=== PATIENT | female | born 1940 | race Caucasian/White ===

== ENCOUNTER 2017-01-18 13:07 | Outpatient (CLI) | payer MEDICARE ==
--- NOTE | 2017-01-18 15:24 | MMO ---
BILATERAL DIGITAL SCREENING MAMMOGRAMS: Date: 01/18/17 This patient's mammogram was interpreted with the assistance of computer-aided detection. HISTORY: Left-sided breast cancer in 2002. Status post lumpectomy and radiation. FINDINGS: Comparison made with exams of 12/28/15, 12/24/14, and 11/19/13. There are scattered fibroglandular densities with benign calcifications. Postop changes are again se en in the left breast. No suspicious masses or calcifications are identified. IMPRESSION: BIRADS 2: Benign Finding(s) Annual mammographic screening mammography is recommended. POS: [facility]
== END 2017-01-18 13:08 | disposition home or self-care (01) ==
LOC: MAMMO 13:07
PROVIDERS: ATTEND Internal Medicine
DX: Z12.31 Encounter for screening mammogram for malignant neoplasm of breast (principal)
CPT/HCPCS: 77067; G0202

== ENCOUNTER 2017-12-04 11:38 | Outpatient (CLI) | payer MEDICARE | END 2017-12-04 11:39 | disposition home or self-care (01) | LOC: BICRAD 11:38 | PROVIDERS: ATTEND Internal Medicine Rheumatology | DX: M47.22 Other spondylosis with radiculopathy, cervical region (principal) | CPT/HCPCS: 72050 ==

== ENCOUNTER 2017-12-18 14:42 | Outpatient (CLI) | payer MEDICARE ==
--- NOTE | 2017-12-18 16:52 | MRI ---
MRI CERVICAL SPINE WITHOUT CONTRAST: 12/18/17 HISTORY: Spondylosis with radiculopathy. Left shoulder and arm pain x2 to 3 months. COMPARISON: None. TECHNIQUE: Cervical spine MRI is performed without intravenous gadolinium administration. Multisequential, mult iplanar imaging is performed. FINDINGS: Appropriate T1 narrow signal intensity of the cervical vertebrae. Cervical spine vertebral body heigh t is maintained. There is no fracture. No significant STIR hyperintensity to suggest vertebral body e libia or ligamentous injury. The visualized brain parenchyma, cervicomedullary junction, cervical cord, and the upper thoracic cor d have a normal size and signal intensity. C2-C3: No significant disc osteophyte complex. No significant central canal stenosis. Neural foramina l are patent. C3-C4: No significant disc osteophyte complex. No significant central canal stenosis. Degenerative ch anges in the right uncovertebral joint results in moderate right foramina narrowing. Mild left forami nal narrowing due to degenerative changes of the uncovertebral joint. C4-C5: Broad based disc osteophyte complex abuts the thecal sac. There is a central component that d eforms the ventral thecal sac and ventral cord. No T2 hyperintensity in the cord. Mild central canal stenosis. Degenerative changes in the left and right uncovertebral joint resulting in mild right and mild to moderate left neural foraminal narrowing. C5-C6: Broad based disc osteophyte complex abuts the thecal sac. Ventral subarachnoid space is still maintained. Mild central canal stenosis. Degenerative changes in the bilateral uncovertebral joints r esulting in moderate right and left foraminal narrowing. C6-C7: Broad based disc osteophyte complex abuts the thecal sac. Ventral subarachnoid space is mainta ined. Mild central canal stenosis. Moderate bilateral neural foraminal narrowing. C7-T1: No significant disc osteophyte complex. No significant central canal stenosis. Neural foramina are patent. IMPRESSION: Degenerative changes of the cervical spine as above. POS: [facility]
== END 2017-12-18 14:43 | disposition home or self-care (01) ==
LOC: BICMRI 14:42
PROVIDERS: ATTEND Internal Medicine Rheumatology
DX: M47.22 Other spondylosis with radiculopathy, cervical region (principal)
CPT/HCPCS: 72141

== ENCOUNTER 2018-01-30 09:22 | Outpatient (CLI) | payer MEDICARE | END 2018-01-30 09:23 | disposition home or self-care (01) | LOC: BICMAMMO 09:22 | PROVIDERS: ATTEND Internal Medicine | DX: Z12.31 Encounter for screening mammogram for malignant neoplasm of breast (principal); Z85.3 Personal history of malignant neoplasm of breast; Z80.3 Family history of malignant neoplasm of breast; Z98.890 Other specified postprocedural states | CPT/HCPCS: 77063; 77067 ==

== ENCOUNTER 2018-05-22 13:22 | Outpatient (CLI) | payer MEDICARE ==
--- NOTE | 2018-05-22 14:34 | RAD ---
RIGHT FOOT 3 VIEWS: HISTORY: Intermittent burning plantar mid foot pain. COMPARISON: None. FINDINGS: Mild hypertrophy of the contents of the plantar aponeurosis insertion site. Joint spaces appear to b e preserved. Lisfranc alignment is maintained. No fracture. IMPRESSION: 1. No fracture. 2. Mild hypertrophy at the calcaneus at the plantar aponeurosis insertion site. Correlate for plant ar fasciitis. POS: [facility]
== END 2018-05-22 13:23 | disposition home or self-care (01) ==
LOC: BICRAD 13:22
PROVIDERS: ATTEND Podiatrist
DX: R20.8 Other disturbances of skin sensation (principal); M89.371 Hypertrophy of bone, right ankle and foot

== ENCOUNTER 2018-08-09 12:24 | Outpatient (CLI) | payer MEDICARE ==
--- NOTE | 2018-08-09 12:48 | RAD ---
3 views right foot: 08/09/2018 COMPARISON: 05/22/2018 HISTORY: Pain, no history of injury FINDINGS: Stable mild degenerative changes are noted, most prominent at the first metatarsal-phalange al joint. There is enthesophyte formation at the origin of the plantar aponeurosis and the insertion of the Ach illes tendon. No acute fracture or dislocation noted. IMPRESSION: Stable 3 view examination of the right foot as detailed above.
== END 2018-08-09 12:25 | disposition home or self-care (01) ==
LOC: BICRAD 12:24
PROVIDERS: ATTEND Internal Medicine Rheumatology
DX: M79.671 Pain in right foot (principal); M77.51 Other enthesopathy of right foot and ankle; M19.071 Primary osteoarthritis, right ankle and foot

== ENCOUNTER 2018-09-02 10:23 | Outpatient (CLI) | payer MEDICARE ==
--- NOTE | 2018-09-02 11:52 | MRI ---
MRI Lower Ext Jt Rt WO Con History: M 78.671 pain and right foot Comparison: Radiograph 08/09/2018 Findings: Ligaments: The ATFL MPI TFL are intact. ATFL and CFL are intact. The spring ligament is int act. Superficial and deep deltoid ligaments are intact. Tendons: Achilles tendon is intact. There is a rupture of the tibialis anterior tendon at the level o f the ankle joint which is markedly tendinotic with few wisps of fibers at the terminal insertion upon the medial cuneiform base of the first metatarsal. The extensor analysis and extensor digitorum tendons are intact. Flexor tendons are intact. No sublux ation of the peroneal tendons. Soft tissues: There is a ganglion pseudocyst from the tarsal sinus extending anterolaterally. Mild ci rcumferential soft tissue swelling of the ankle. Mild thickening central band plantar fascia. Bones: Mild midfoot degenerative change. There is subcortical cyst formation of the medial cuneiform at the navicular cuneiform joint as well as of the intermediate cuneiform and base of the second metatarsal. No fracture. No malalignment. No stress edema. No osteochondral defect of the talar dome. Mild degenerative disease of the lateral shoulder ankle mortise. Muscles: Muscle signal and bulk is normal. Impression: Full-thickness rupture tibialis anterior myotendinous junction at the level of the ankle with a gap to the terminal insertion with few with subsequent fibers of the medial cuneiform and base of the great toe metatarsal base.
== END 2018-09-02 10:24 | disposition home or self-care (01) ==
LOC: BICMRI 10:23
PROVIDERS: ATTEND Internal Medicine Rheumatology
DX: M19.071 Primary osteoarthritis, right ankle and foot (principal); M79.671 Pain in right foot; M66.871 Spontaneous rupture of other tendons, right ankle and foot

== ENCOUNTER 2019-02-03 10:49 | Outpatient (CLI) | payer MEDICARE ==
--- NOTE | 2019-02-03 11:39 | MMO ---
Bilateral MAMMO Bilat Screen [facility]. CLINICAL HISTORY: Patient is 78 years old and is seen for screening. The patient has the following family history of breast cancer: sister, at age 60, malignant (generic); sister, at age 70, malignant (generic) and maternal aunt, malignant (generic). The patient has a history of malignant (generic) in the left breast at age 62. The patient has a history of left Lumpectomy at age 62 - malignant. VIEWS: The views performed were: bilateral craniocaudal with tomosynthesis and bilateral mediolateral oblique with tomosynthesis. FILMS COMPARED: The present examination has been compared to a prior imaging study performed at [facility] on 01/30/2018. This study has been interpreted with the assistance of computer-aided detection. MAMMOGRAM FINDINGS: There are scattered fibroglandular densities. Finding 1: There are stable benign appearing calcifications seen in both breasts. There are also vascular calcifications. Finding 2: There are stable post operative changes seen in the left breast. There are no suspicious masses, suspicious calcifications, or new areas of architectural distortion. IMPRESSION: THERE IS NO MAMMOGRAPHIC EVIDENCE OF MALIGNANCY. A ROUTINE FOLLOW-UP MAMMOGRAM IN 1 YEAR IS RECOMMENDED. THE RESULTS OF THIS EXAM WERE SENT TO THE PATIENT. ACR BI-RADS Category 2 - Benign finding MAMMOGRAPHY NOTE: 1. A negative mammogram report should not delay a biopsy if a dominant of clinically suspicious mass is present. 2. Approximately 10% to 15% of breast cancers are not detected by mammography. 3. Adenosis and dense breasts may obscure an underlying neoplasm. Reported by: ENRIQUE CONTRERAS MD Electonically Signed: [id number]
== END 2019-02-03 10:50 | disposition home or self-care (01) ==
LOC: BICMAMMO 10:49
PROVIDERS: ATTEND Internal Medicine
DX: Z12.31 Encounter for screening mammogram for malignant neoplasm of breast (principal); Z80.3 Family history of malignant neoplasm of breast; Z85.3 Personal history of malignant neoplasm of breast
CPT/HCPCS: 77063; 77067

== ENCOUNTER 2020-01-30 05:50 | Observation (INO) | payer MEDICARE ==
[2020-01-30] MEDS ORDERED: Meclizine HCl 25 MG TAB ONE (06:06)
[2020-01-30 06:14] LABS: #Eosinphils 0.1 thou/uL (0.0-0.7); #Lymphocytes 1.4 thou/uL (1.20-3.40); #Monocytes 0.8 thou/uL (0.11-0.59); #Neutrophils 10.1 thou/uL (1.40-6.50); %Basophils 0.2 % (0.0-1.0); %Eosinophils 0.7 % (0.0-10.0); %Lymphocytes 11.5 % (21.0-51.0); %Monocytes 6.1 % (0.0-10.0); %Neutrophils 81.4 % (42.0-75.0); Hemoglobin 13.6 g/dL (12.0-16.0); Mean Corpuscular HGB CONC 32.9 g/dL (32.0-36.0); Mean Corpuscular Hemoglobin 31.5 pg (27.0-31.0); Mean Corpuscular Volume 95.6 fL (78.0-98.0); Mean Platelet Volume 7.5 fL (7.4-10.4); Platelet Count 316 thou/uL (130-400); RBC Distribution Width 12.4 % (11.5-14.5); Red Blood Cell (RBC) Count 4.33 mill/uL (4.20-5.40); White Blood Cell (WBC) Count 12.4 thou/uL (4.8-10.8)
[2020-01-30 06:38] LABS: ALT (SGPT) 32 U/L (8-55); AST (SGOT) 23 U/L (5-34); Albumin 3.5 g/dL (3.4-4.8); Alkaline Phosphatase 106 U/L (40-110); Anion Gap 14 mmol/L (10-20); BUN (Urea Nitrogen) 13 mg/dL (9.8-20.1); Bilirubin, Total 0.2 mg/dL (0.2-1.2); CK (CPK) 63 U/L (29-168); Calc. Creatinine Clearance 0 mL/min (70-130); Calcium 8.9 mg/dL (7.8-10.44); Carbon Dioxide 28 mmol/L (23-31); Chloride 101 mmol/L (98-107); Estimated GFR-MDRD 85; Globulin 2.5 g/dL (2.4-3.5); Glucose 124 mg/dL (83-110); Potassium 3.7 mmol/L (3.5-5.1); Sodium 139 mmol/L (136-145)
--- NOTE | 2020-01-30 07:23 | CT ---
PRELIMINARY REPORT/[facility]/EMERGENCY AFTER HOURS PROCEDURE EXAM: CT Head Without Intravenous Contrast. CLINICAL HISTORY: NO PREVIOUS.. ER 9..Patient was brought in by EMS complaining of dizziness. She states that it starte d last night while she was sitting and watching TV. She was able to sleep tonight but when she woke up again the dizziness was severe so she came in here to be seen. She states that when she tries to g et up and walk she is falling over to the left side. She has had vertigo but it was more than 10 years ago. She has no recent illness. No upper respiratory infection or cough or congestion or ear pa in. No new medications. No new trauma or falls. No other weakness or numbness. TECHNIQUE: Axial computed tomography images of the head/brain without intravenous contrast. COMPARISON: None provided. FINDINGS: BRAIN: No acute intraparenchymal hemorrhage. No mass lesion. No CT evidence for acute territorial infarct. N o midline shift or extra-axial collection. VENTRICLES: No hydrocephalus. ORBITS: The orbits are unremarkable. SINUSES AND MASTOIDS: The paranasal sinuses and mastoid air cells are mostly clear. Large retention cyst in the left sphen oid sinus. SOFT TISSUES: No significant facial or scalp soft tissue swelling evident. No radiopaque foreign body is seen. BONES: No acute skull fracture. IMPRESSION: No acute intracranial abnormality. ELECTRONICALLY SIGNED BY: Ruben Beck MD Jan 30, 2020 6:36:12 AM [employer] This report is intended for review by the ordering physician only, in accordance of law. If you recei ve this report in error, please call [facility] at [phone]. FINAL REPORT Final report by Dr. Ventura Emergency after-hours study CT BRAIN NONCONTRAST: DATE: 01/30/2020 6:26 AM HISTORY: 79-year-old female with dizziness. FINDINGS: There is no evidence of acute intra-axial or extra-axial hemorrhage. There is no midline shift or any other mass effect. There is no extra-axial fluid collection. There is no evidence of obstructive hydrocephalus. Calvarium is intact. There is almost total opacification of the left sphenoid air cell by material with density of 32 Hounsfield units. Osseous mural thickening of left sphenoid air cell indicates that this is a long-standing chronic sinusitis. The rest of the visualized upper porti ons of paranasal sinuses, and bilateral tympanomastoid cavities, are grossly clear. Agree with preliminary report by [facility]. IMPRESSION: 1) No acute intracranial findings. 2) Evidence for occlusive sphenoid sinus disease: Occluding lesion at left sphenoethmoidal recess. Re commend otolaryngology consultation. Transcribed Date/Time: 01/30/2020 7:25 AM
--- NOTE | 2020-01-30 07:40 | CT ---
CTA of the head with IV contrast and 3-D reformatted imaging. CTA of the neck with IV contrast and 3-D reformatted imaging. INDICATION: History of dizziness COMPARISON: Noncontrast CT of the brain dated January 30, 2020 at 6:24 AM FINDINGS: CTA OF THE HEAD WITH CONTRAST: CTA OF THE BRAIN: Right ICA: Patent. Right MCA: Patent. Right BEAR: Patent. ACOM: Patent. Left ICA: Patent. Left MCA: Patent. Left BEAR: Patent. PCOMs: Patent. Vertebral arteries: Patent. Basilar Artery: Patent. overlock sewing machine operator: Patent. Incidentals: None. CTA OF THE NECK WITH CONTRAST: Right CCA: Patent. Right ICA: Patent. Right Subclavian: Patent. Right Vertebral Artery: Patent. Left CCA: Patent. Left ICA: Patent. Left Subclavian: Patent. Left Vertebral Artery: Patent. Aerodigestive tract: Clear. Parotids/Submandibular/Thyroid glands: Normal. Lymph nodes: No pathologically enlarged lymph nodes. Lung Apices: Right upper lobe pneumonia Bones: There is scattered degenerative and osteoarthritic change present. Incidentals: None. IMPRESSION: 1. No hemodynamically significant stenosis, occlusion or aneurysmal formation. 2. Right upper lobe pneumonia.
[2020-01-30] MEDS ORDERED: cefTRIAXone\\ROCEPHIN 2 GM VIAL ONE (07:49)
[2020-01-30] MEDS ORDERED: Azithromycin 500 MG VIAL ONE (07:49)
--- NOTE | 2020-01-30 08:13 | RAD ---
Chest AP view INDICATION: History of dizziness COMPARISON: Prior chest radiograph dated December 28, 2006 FINDINGS: Lungs: The lungs are clear Cardiac silhouette: The cardiomediastinal silhouette appears within normal limits. Pulmonary vasculature: Normal Pleural spaces: No pleural effusion or pneumothorax is demonstrated. Upper abdomen: There is slight elevation the right hemidiaphragm slightly more pronounced than on th e prior exam. Osseous structures: No acute osseous abnormality. Additional findings: Surgical clips of the left axilla are stable. IMPRESSION: No acute cardiopulmonary abnormality.
[2020-01-30 08:28] LABS: Bilirubin Negative (Negative); Blood, Urine Negative (Negative); Glucose, Urine (Dipstick) Negative (Negative); Ketone, Urine Negative (Negative); Leukocyte Negative (Negative); Nitrite Negative (Negative); Protein, Urine (Dipstick) Negative (Neg-Trace); Urobilinogen 0.2 mg/dL (Less than 2); pH, Urine 7.5 (5.0-9.0)
[2020-01-30 08:36] LABS: Clarity Clear (Clear)
[2020-01-30] MEDS ORDERED: Lorazepam 2 MG/ML VIAL ONE (09:02)
[2020-01-30] MEDS ORDERED: Diazepam 10 MG/2 ML SYRINGE ONE (09:03)
[2020-01-30] MEDS ORDERED: Senokot S 8.6-50 MG TAB PO PRN (09:06)
[2020-01-30] MEDS ORDERED: Ondansetron PF 4 MG/2 ML Vial IVP PRN (09:06)
--- NOTE | 2020-01-30 11:49 | MRI ---
MRI BRAIN WITHOUT CONTRAST: History: Vertigo. Correlation: CT performed earlier this morning which showed no acute finding. FINDINGS: The ventricles are of normal size and position. Mild to moderate cortical volume loss consistent with age. Mild to moderate chronic ischemic white matter change. No evidence for restricted diffusion. There is no evidence of acute infarct. There is no evidence of mass or edema. No evidence of hemorrhage. Intracranial internal carotid arteries and cerebral arteries show flow voids. There is signal in the left sphenoid sinus. This corresponds to the finding of diffuse mucosal densit y in the left sphenoid sinus on today's CT. Paranasal sinuses otherwise appear clear. IMPRESSION: 1. Mild to moderate chronic ischemic white matter change. 2. No acute intracranial abnormality. 3. Signal left sphenoid sinus consistent with diffuse mucosal thickening, corresponding to the C T. POS: [facility]
[2020-01-30] MEDS ORDERED: Iopamidol-370 76% 500 ML 1 ML ONE (13:54)
[2020-01-30 15:02] VITALS: BMI 25.3
--- NOTE | 2020-01-30 20:00 | HP ---
CHIEF COMPLAINT: Dizziness. HISTORY OF PRESENT ILLNESS: The patient is a very pleasant 79-year-old female, who presents to the hospital with sudden onset of vertigo x1 day. She states that she was sitting, watching TV, when she started having a spinning sensation. She tried to relax at home; however, throughout the night, her vertigo got worse. She was little nauseated, but no vomiting. The patient states that she has had this in the past many years ago; however, not as severe as this. She denies any recent URI like symptoms, any fevers or chills. In the ED, she was noted to found an incidental pneumonia in her right upper lung area. PAST MEDICAL HISTORY: The patient has a history of breast cancer, hypertension, and arthritis. PAST SURGICAL HISTORY: She has had an abdominal aortic aneurysm repair, lumpectomy, and two C-sections. SOCIAL HISTORY: She denies any alcohol use, drug use, smoking history. She is a full code. FAMILY HISTORY: No history of heart disease or strokes. ALLERGIES: NO KNOWN DRUG ALLERGIES. MEDICATIONS: 1. Effexor 300 mg daily. 2. Zocor 40 mg daily. 3. Vitamin D3 of 1000 units daily. 4. Vitamin B12 of 1000 units daily. 5. Aspirin 81 mg daily. 6. Duloxetine 30 mg daily. PHYSICAL EXAMINATION: VITAL SIGNS: As of the following; temperature of 98.8, O2 saturations 95% on room air, respiratory rate 18, pulse of 83, and blood pressure 157/85. GENERAL: She is awake, alert, and oriented x3. Does not appear in distress. She still has a little bit of vertigo. CV: S1 and S2 present. No murmurs, rubs, or gallops. LUNGS: Clear to auscultation. No rhonchi or wheezes noted. ABDOMEN: Soft and nontender. Bowel sounds are present x2. EXTREMITIES: No edema. Pedal pulses are present x2. HEENT: She has nystagmus, which is worse on moving her eyes to the left compared to the right. It is a nystagmus. Her extraocular muscles are intact. Pupils are equal and reactive to light. NEUROLOGIC: Neurovascular lawrence, no focal deficits noted. LABORATORY AND IMAGING DATA: She had an EKG that did not show any acute abnormalities. The patient's laboratory results; WBCs of 12.4, hemoglobin of 13.6, hematocrit of 41.4, and platelets of 316. Chemistry; sodium of 139, potassium of 3.7, BUN of 13, and creatinine 0.67. Troponin x1 was negative. TSH was normal. She did have a CTA and a chest x-ray and a CT brain. Head CTA indicated no stenosis, just right upper lobe pneumonia. She did have a CT brain, which indicated evidence of occlusive sphenoid sinus disease including a lesion to the left sphenoid ethmoidal recess. ASSESSMENT AND PLAN: The patient is a very pleasant 79-year-old female, who presents to the hospital with complaints of vertigo. 1. Vertigo. The patient was seen by ENT for the findings on the CT head. I was told by the ENT most likely the patient has vestibular neuritis. We will start the patient on steroids 40 mg for five days, then taper to 20 mg for five days, then 10 mg for five days, that is the recommendation. Also benzodiazepine and meclizine as needed as inpatient as well as for symptoms control. I ordered a brain MRI, which actually resulted, which shows mild to moderate chronic ischemic white matter changes. No acute intracranial abnormalities. 2. Pneumonia. We will start the patient on antibiotics and continue to monitor. 3. Hypertension. We will continue her medications. 4. Deep venous thrombosis prophylaxis. We will put the patient on sequential compression devices. I will go ahead and also order an echocardiogram for completion of a possible stroke. However, I do not think this patient had a stroke. I believe the patient should be okay for discharge by tomorrow. As I mentioned the recommendation from the ENT will be prednisone 40 mg for five doses, then 20 mg for five doses, and then 10 mg for five doses and benzodiazepines and meclizine as needed while inpatient. Job ID: [id number]
[2020-01-30] MEDS: Famotidine 20 MG TAB PO SCH (20:24)
[2020-01-30] MEDS: Acetaminophen 325 MG TAB PO PRN (20:24)
[2020-01-30] MEDS: Meclizine HCl 25 MG TAB PO PRN (20:25)
[2020-01-31 04:45] LABS: #Eosinphils 0.1 thou/uL (0.0-0.7); #Lymphocytes 1.3 thou/uL (1.20-3.40); #Monocytes 0.5 thou/uL (0.11-0.59); #Neutrophils 4.8 thou/uL (1.40-6.50); %Basophils 0.4 % (0.0-1.0); %Eosinophils 1.6 % (0.0-10.0); %Lymphocytes 19.1 % (21.0-51.0); Hemoglobin 12.8 g/dL (12.0-16.0); Mean Corpuscular Hemoglobin 31.5 pg (27.0-31.0); Mean Corpuscular Volume 98.6 fL (78.0-98.0); Mean Platelet Volume 7.5 fL (7.4-10.4); Platelet Count 274 thou/uL (130-400); RBC Distribution Width 12.5 % (11.5-14.5); Red Blood Cell (RBC) Count 4.06 mill/uL (4.20-5.40); White Blood Cell (WBC) Count 6.7 thou/uL (4.8-10.8)
[2020-01-31 04:59] LABS: Anion Gap 10 mmol/L (10-20); BUN (Urea Nitrogen) 10 mg/dL (9.8-20.1); Calc. Creatinine Clearance 71 mL/min (70-130); Calcium 8.8 mg/dL (7.8-10.44); Carbon Dioxide 30 mmol/L (23-31); Chloride 103 mmol/L (98-107); Estimated GFR-MDRD 88; Glucose 105 mg/dL (83-110); Potassium 3.9 mmol/L (3.5-5.1); Sodium 139 mmol/L (136-145)
[2020-01-31] MEDS ORDERED: cefTRIAXone\\ROCEPHIN 1 GM in Sodium Chloride 0.9% 100 ML IVPB SCH (08:00)
[2020-01-31] MEDS ORDERED: predniSONE 20 MG TAB PO SCH (08:00)
[2020-01-31] MEDS ORDERED: Non-Formulary Item 1 EACH (Celecoxib [Celebrex] 200 MG Capsule) PO PRN (08:45)
[2020-01-31] MEDS ORDERED: Bisacodyl 5 MG TAB PO PRN (08:48)
[2020-01-31] MEDS ORDERED: Cepastat Lozenges 1 LOZ PO PRN (08:48)
[2020-01-31] MEDS ORDERED: Diabetic Tussin 200 MG/10 ML UDCUP PO PRN (08:48)
[2020-01-31] MEDS ORDERED: Calcium Carbonate 500 MG ChewTAB PO PRN (08:48)
[2020-01-31] MEDS ORDERED: hydrALAZINE 20 MG/ML VIAL SLOW IVP PRN (08:48)
[2020-01-31] MEDS ORDERED: Loperamide HCl 2 MG CAP PO PRN (08:48)
[2020-01-31] MEDS ORDERED: HYDROcodone/Acetaminophen 5/325 mg Tablet PO PRN (08:48)
[2020-01-31] MEDS ORDERED: Zolpidem Tartrate 5 MG TAB PO PRN (08:48)
[2020-01-31] MEDS ORDERED: Loratadine 10 MG TAB PO PRN (08:48)
[2020-01-31] MEDS ORDERED: Benzonatate 100 MG CAP PO PRN (08:48)
[2020-01-31] MEDS ORDERED: Sodium Chloride 0.65% Nasal 44 ML BOT EA NARE PRN (08:48)
[2020-01-31] MEDS: Acetaminophen 325 MG TAB PO PRN (08:53)
[2020-01-31] MEDS: Meclizine HCl 25 MG TAB PO PRN (08:55)
[2020-01-31] MEDS: Famotidine 20 MG TAB PO SCH (08:55)
[2020-01-31] MEDS ORDERED: Azithromycin 500 MG in Sodium Chloride 0.9% 250 ML 250 ML IVPB SCH (09:00)
[2020-01-31] MEDS ORDERED: Aspirin 81 mg Enteric Coated Tablet PO SCH (09:00)
[2020-01-31] MEDS ORDERED: Venlafaxine HCl XR 150 MG CAP PO SCH (09:00)
[2020-01-31] MEDS ORDERED: Enoxaparin Sodium 40 MG/0.4 ML SYRINGE SC SCH (09:00)
[2020-01-31] MEDS ORDERED: DULoxetine 30 MG CAP PO SCH (09:00)
[2020-01-31] MEDS ORDERED: Calcium Carbonate 600 MG TAB PO SCH (09:00)
[2020-01-31] MEDS ORDERED: Cholecalciferol 1,000 UNITS (25 MCG) TAB PO SCH (09:00)
[2020-01-31] MEDS ORDERED: Lisinopril 10 MG TAB PO SCH (09:00)
[2020-01-31] MEDS ORDERED: Simvastatin 40 MG TAB PO SCH (09:00)
[2020-01-31] MEDS ORDERED: CeleCOXIB 100 MG CAP PO PRN (09:24)
--- NOTE | 2020-01-31 10:51 | PDOC.DS.DS ---
Provider - Provider Date of Admission: 01/30/20 08:53 Date of Discharge: 01/31/20 Admitting Provider: Belle Seo MD Primary Care Physician: Ruben Montemayor MD Course - Hospital Course Hospital Course: 79-year-old female who was admitted for vertigo, in the emergency room patient had CT brain which was negative for any acute intracranial process but there was reported large retention cyst in left sphenoid sinus, patient does have chronic sinusitis history, chest x-ray was unremarkable but when we did a CT [place] angiography as a part of work-up for dizziness there was right upper lobe pneumonia. Subsequently MRI brain was done which did not show any retention cyst but it was consistent with sphenoid sinus sinusitis. Patient remains neurologically intact. Physical therapy evaluated this patient and recommended okay to go home. On discharge will change to Omnicef for 7 days along with prednisone for 5 days and Antivert 25 mg every 8 hourly as needed basis. She will continue all her previous medication. Resuscitation Status: 01/30/20 09:06 Resuscitation Status Routine Resuscitation Status: FULL: Full Resuscitation - Labs Lab Results: 01/31/20 04:25 01/31/20 04:25 Abnormal Lab Results - Last 48 hrs 01/30/20 06:04: WBC 12.4 H, MCH 31.5 H, Neutrophils % 81.4 H, Lymphocytes % 11.5 L, Neutrophils # 10.1 H, Monocytes # 0.8 H 01/31/20 04:25: RBC 4.06 L, MCV 98.6 H, MCH 31.5 H, Lymphocytes % 19.1 L Microbiology - Entire Visit 01/30/20 08:06 Venous blood - Left Hand Blood Culture - Preliminary Specimen has been received and culture in progress. No Growth to date. 01/30/20 08:06 Venous blood - Left Arm Blood Culture - Preliminary Specimen has been received and culture in progress. No Growth to date. 01/30/20 08:46 Nasal swab Influenza Types A,B [facility] - Final - Diagnostic Interpretation CT scan - head Status: image reviewed by me Additional comments: No acute intracranial process, retention cyst reported in sphenoid sinus MRI - head Additional comments: Reported as no acute intracranial process, sphenoid sinus thickening CT scan - chest Additional comments: No acute cardiopulmonary process Other Additional comments: CT angiography head and neck negative for any acute intracranial process but reported as right upper lobe pneumonia - Physical Exam Vitals: Vital Signs (12 hours) Temp Pulse Resp BP BP Pulse Ox 01/31/20 09:31 150/82 H 01/31/20 07:27 98.8 F 79 17 150/82 H 93 L 01/31/20 04:00 97.3 F L 77 18 160/93 H 97 01/31/20 00:00 97.8 F 83 16 151/74 H 92 L Weight Weight 142 lb 14.4 oz Physical Exam: The patient was seen and examined on the day of discharge. General patient is currently alert and awake no acute distress Neck supple no JVD Lungs clear to auscultation Cardiac S1-S2 regular no murmur Abdomen soft and benign Neurologically nonfocal examination Problem - Problem (1) Vertigo Code(s): R42 - DIZZINESS AND GIDDINESS Status: Resolved (2) Pneumonia Code(s): J18.9 - PNEUMONIA, UNSPECIFIED ORGANISM Status: Acute Qualifiers: Laterality: right Lung location: upper lobe of lung (3) Sinusitis chronic, sphenoidal Code(s): J32.3 - CHRONIC SPHENOIDAL SINUSITIS Status: Chronic Plan - Discharge Medications Prescriptions: Cefdinir 300 mg PO Q12HR #14 capsule Meclizine HCl [Antivert] 25 mg PO Q8H PRN #30 tab PRN Reason: Dizziness predniSONE 20 mg PO BID-WM #20 tab Home Medications: Medication Instructions Recorded Confirmed Type Aspirin [Ecotrin Low Strength] 81 mg PO DAILY 01/30/20 01/30/20 History Calcium Carbonate [Calcium] 600 mg PO BID 01/30/20 01/30/20 History Celecoxib [Celebrex] 200 mg PO BID PRN 01/30/20 01/30/20 History Cholecalciferol (Vitamin D3) 2,000 unit PO DAILY 01/30/20 01/30/20 History [Vitamin D3] Cyanocobalamin (Vitamin B-12) 1,000 mcg IM Q28D 01/30/20 01/30/20 History [Cyanocobalamin Injection] DULoxetine [Cymbalta] 30 mg PO DAILY 01/30/20 01/30/20 History Levothyroxine Sodium [Levoxyl] 50 mcg PO DAILY 01/30/20 01/30/20 History Omeprazole Magnesium [Prilosec] 20 mg PO DAILY 01/30/20 01/30/20 History Simvastatin [Zocor] 40 mg PO DAILY 01/30/20 01/30/20 History Trandolapril [Mavik] 1 mg PO DAILY 01/30/20 01/30/20 History Venlafaxine HCl [Effexor] 300 mg PO DAILY 01/30/20 01/30/20 History Cefdinir 300 mg PO Q12HR #14 capsule 01/31/20 Rx Meclizine HCl [Antivert] 25 mg PO Q8H PRN #30 tab 01/31/20 Rx predniSONE 20 mg PO BID-WM #20 tab 01/31/20 Rx Allergies: No Known Allergies Allergy (Unverified 01/30/20 10:48) - Discharge Instructions Activity:: Activity as Tolerated Nourishment:: Heart Healthy Diet Therapies:: Not Applicable Equipment/Supplies:: Not Applicable IV Therapy:: Not Applicable - Follow up Plan Referrals: Ruben Montemayor MD [Primary Care Provider] - Disposition: HOME Quality - Care Measures CORE MEASURES:: N/A
[2020-01-31 11:32] VITALS: TEMP 98.2
[2020-01-31 13:06] VITALS: BP 162/82
--- NOTE | 2020-01-31 14:24 | EKG ---
Test Reason : Blood Pressure : / mmHG Vent. Rate : 083 BPM Atrial Rate : 083 BPM P-R Int : 158 ms QRS Dur : 090 ms QT Int : 378 ms P-R-T Axes : 058 014 042 degrees QTc Int : 444 ms Normal sinus rhythm Normal ECG Confirmed by AAMIR FALL DO ([id number]), field map editor ALLAN ÁLVAREZ ([id number]) on 01/31/2020 2:24:41 PM Referred By: Confirmed By:AAMIR FALL DO
[2020-01-31] MEDS ORDERED: Atorvastatin Calcium 20 MG TAB PO SCH (21:00)
[2020-02-01] MEDS ORDERED: Levothyroxine Sodium 50 MCG TAB PO SCH (06:00)
--- NOTE | 2020-02-02 12:41 | CT ---
CTA of the head with IV contrast and 3-D reformatted imaging. CTA of the neck with IV contrast and 3-D reformatted imaging. INDICATION: History of dizziness COMPARISON: Noncontrast CT of the brain dated January 30, 2020 at 6:24 AM FINDINGS: CTA OF THE HEAD WITH CONTRAST: CTA OF THE BRAIN: Right ICA: Patent. Right MCA: Patent. Right BEAR: Patent. ACOM: Patent. Left ICA: Patent. Left MCA: Patent. Left BEAR: Patent. PCOMs: Patent. Vertebral arteries: Patent. Basilar Artery: Patent. hair assistant: Patent. Incidentals: None. CTA OF THE NECK WITH CONTRAST: Right CCA: Patent. Right ICA: Patent. Right Subclavian: Patent. Right Vertebral Artery: Patent. Left CCA: Patent. Left ICA: Patent. Left Subclavian: Patent. Left Vertebral Artery: Patent. Aerodigestive tract: Clear. Parotids/Submandibular/Thyroid glands: Normal. Lymph nodes: No pathologically enlarged lymph nodes. Lung Apices: Right upper lobe pneumonia Bones: There is scattered degenerative and osteoarthritic change present. Incidentals: None. IMPRESSION: 1. No hemodynamically significant stenosis, occlusion or aneurysmal formation. 2. Right upper lobe pneumonia. Transcribed Date/Time: 02/02/2020 12:41 PM
--- NOTE | 2020-02-03 07:23 | CON ---
DATE OF CONSULTATION: CHIEF COMPLAINT: Imbalance, vertigo, dizziness, nausea, and vomiting. HISTORY OF PRESENT ILLNESS: An 79-year-old female patient presenting with new onset and persistent vertigo symptoms, which are described as true vertigo with room spinning, nausea and vomiting, and inability to stand or walk without assistance, presenting to the emergency room for intractable symptoms and inability to tolerate. The patient was evaluated with CTA as well as imaging, and without findings of focal weakness or radiographic evidence of stroke, ENT was consulted both for a sphenoid sinus mucositis or a mass as well as vertigo symptoms. The patient denied any medications or alleviating or exacerbating symptoms, however, noted significant dysfunction and presented to the emergency room for evaluation. PAST MEDICAL HISTORY: The patient has a history of breast cancer, hypertension, and arthritis. PAST SURGICAL HISTORY: She has had an abdominal aortic aneurysm repair, breast lumpectomy, and two C-sections. SOCIAL HISTORY: Denies any alcohol use recently, drug use, or smoking history. She is full code. FAMILY HISTORY: No history of heart disease or strokes. Lives with . ALLERGIES: NO KNOWN DRUG ALLERGIES. MEDICATIONS: 1. Effexor. 2. Zocor. 3. Vitamin D3. 4. Vitamin B12. 5. Aspirin 81 mg. 6. Duloxetine. REVIEW OF SYSTEMS: SKIN: Negative. EYES: Negative. EARS, NOSE, AND THROAT: See HPI. Otherwise negative. RESPIRATORY: Negative. CARDIOVASCULAR: Negative. GASTROINTESTINAL: Negative. MUSCULOSKELETAL: Negative. NEUROLOGIC: Negative. HEMATOLOGIC: Negative. LYMPHATIC: Negative. IMMUNOLOGIC: Negative. ENDOCRINE: Negative. PHYSICAL EXAMINATION: VITAL SIGNS: Stable. GENERAL: The patient is alert and oriented without acute distress and oriented x3. HEAD AND FACE: Normocephalic and atraumatic. No facial skin lesions. No maxillary tenderness. No frontal tenderness. No parotid gland masses or lesions or tenderness. No submandibular gland masses, lesions, or tenderness. EYES: Pupils are equally round and reactive to light. Extraocular movements are intact; however, there is nystagmus on lateral gaze, more significantly to the right. EARS: Right and left pinna are normal. EACs are clear. TMs are normal and intact with no evidence of effusion or infection. TMs are mobile with autoinsufflation. NOSE: External nose is normal. Nasal mucosa is healthy. Turbinates are healthy. No masses or lesions. ORAL CAVITY: Lips, teeth, and gums are normal. Oral mucosa is moist without lesions. Tongue and floor of mouth are without masses. Palate and uvula are without lesions with symmetric elevation. NECK: No lymphadenopathy. Trachea midline. Thyroid with normal size without apparent nodules. NEUROLOGIC: Cranial nerves 2 through 12 are grossly intact. Mood and affect are normal except for the patient is in mild distress from vertigo symptoms. No focal weakness in upper or lower limbs. DATA: CTA reviewed and sphenoid mass or mucosal thickening identified; however, given the location of the sphenoid mucosal enlargement and the patient's lack of sinusitis and no intracranial extension, it is unlikely that the mass or inflammation has anything to do with the current vertigo symptoms. However, given the location and concern, I recommend a dedicated CT scan is performed as an outpatient and for evaluation as an outpatient for possible biopsy. ASSESSMENT AND PLAN: An 79-year-old female patient with acute new onset vertigo symptoms without alleviating or exacerbating triggers with persistent nystagmus on lateral gaze. Given no focal neurologic weaknesses and negative imaging, likely the patient is experiencing vestibular neuritis and recommend a prednisone burst and then a taper. The patient's imaging also noted an apical potential pneumonia, and hospitalist will recommend antibiotic to cover pneumonia per their recommendations. Recommend the patient follow up as an outpatient for a dedicated CT maxillofacial and sinus as well as an audiogram and for vestibular testing. Job ID: [id number] MTDD
== END 2020-01-31 13:45 | disposition home or self-care (01) ==
LOC: ERS 05:50 → ERHOLD 08:53 → 2SE 14:00
PROVIDERS: ADMIT Internal Medicine; ATTEND Internal Medicine
DX: R42 Dizziness and giddiness (principal); J18.9 Pneumonia, unspecified organism; J32.3 Chronic sphenoidal sinusitis; I10 Essential (primary) hypertension; M19.90 Unspecified osteoarthritis, unspecified site; Z85.3 Personal history of malignant neoplasm of breast; Z79.82 Long term (current) use of aspirin; Z79.899 Other long term (current) drug therapy
CPT/HCPCS: 36415; 70450; 70496; 70498; 70551; 71045; 80048; 80053; 81003; 82550; 83605; 84443; 84484; 85025; 87040; 87804; 93005; 96365; 96366; 96367; 96372; 96375; G0378; J0456; J0696; J1650; J2060; J3360; J3490; J7050; J7512; Q9967

== ENCOUNTER 2020-02-09 09:49 | Outpatient (CLI) | payer MEDICARE ==
--- NOTE | 2020-02-09 10:43 | MMO ---
Bilateral MAMMO Bilat Screen [facility]. CLINICAL HISTORY: Patient is 79 years old and is seen for screening. The patient has the following family history of breast cancer: sister, at age 60, malignant (generic); sister, at age 70, malignant (generic) and maternal aunt, malignant (generic). The patient has a history of malignant (generic) in the left breast at age 62. The patient has a history of left Lumpectomy at age 62 - malignant. VIEWS: The views performed were: bilateral craniocaudal with tomosynthesis; bilateral mediolateral oblique with tomosynthesis; and left exaggerated craniocaudal. FILMS COMPARED: The present examination has been compared to prior imaging studies performed at [facility] on 12/28/2015, 01/18/2017, 01/30/2018 and 02/03/2019. This study has been interpreted with the assistance of computer-aided detection. MAMMOGRAM FINDINGS: There are scattered fibroglandular densities. Finding 1: There are benign appearing and vascular calcifications seen in both breasts. Finding 2: There are stable post operative changes seen in the left breast. There are no suspicious masses, suspicious calcifications, or new areas of architectural distortion. IMPRESSION: THERE IS NO MAMMOGRAPHIC EVIDENCE OF MALIGNANCY. A ROUTINE FOLLOW-UP MAMMOGRAM IN 1 YEAR IS RECOMMENDED. THE RESULTS OF THIS EXAM WERE SENT TO THE PATIENT. ACR BI-RADS Category 2 - Benign finding MAMMOGRAPHY NOTE: 1. A negative mammogram report should not delay a biopsy if a dominant of clinically suspicious mass is present. 2. Approximately 10% to 15% of breast cancers are not detected by mammography. 3. Adenosis and dense breasts may obscure an underlying neoplasm. Reported by: FIDELINA REYES MD Electonically Signed: [id number]
== END 2020-02-09 09:50 | disposition home or self-care (01) ==
LOC: BICMAMMO 09:49
PROVIDERS: ATTEND Internal Medicine
DX: Z12.31 Encounter for screening mammogram for malignant neoplasm of breast (principal); Z80.3 Family history of malignant neoplasm of breast; Z85.3 Personal history of malignant neoplasm of breast; Z98.890 Other specified postprocedural states
CPT/HCPCS: 77063; 77067

== ENCOUNTER 2020-08-24 11:23 | Outpatient (CLI) | payer MEDICARE | END 2020-08-24 11:24 | disposition home or self-care (01) | LOC: BICRAD 11:23 | PROVIDERS: ATTEND Internal Medicine Rheumatology | DX: M17.0 Bilateral primary osteoarthritis of knee (principal) ==

== ENCOUNTER 2021-02-10 13:23 | Outpatient (CLI) | payer MEDICARE | END 2021-02-10 13:24 | disposition home or self-care (01) | LOC: BICMAMMO 13:23 | PROVIDERS: ATTEND Student in an Organized Health Care Education/Training Program | DX: Z12.31 Encounter for screening mammogram for malignant neoplasm of breast (principal); Z98.890 Other specified postprocedural states; Z85.3 Personal history of malignant neoplasm of breast; Z80.3 Family history of malignant neoplasm of breast | CPT/HCPCS: 77063; 77067 ==

== ENCOUNTER 2022-02-13 09:06 | Outpatient (CLI) | payer MEDICARE, OTHER | END 2022-02-13 09:07 | disposition home or self-care (01) | LOC: BICMAMMO 09:06 | PROVIDERS: ATTEND Internal Medicine | DX: Z12.31 Encounter for screening mammogram for malignant neoplasm of breast (principal); R92.1 Mammographic calcification found on diagnostic imaging of breast; Z91.89 Other specified personal risk factors, not elsewhere classified; Z80.3 Family history of malignant neoplasm of breast; Z85.3 Personal history of malignant neoplasm of breast; Z98.890 Other specified postprocedural states | CPT/HCPCS: 77063; 77067 ==

== ENCOUNTER 2023-08-21 14:25 | Outpatient (CLI) | payer MEDICARE | END 2023-08-21 14:26 | disposition home or self-care (01) | LOC: BICMAMMO 14:25 | PROVIDERS: ATTEND Internal Medicine | DX: N63.20 Unspecified lump in the left breast, unspecified quadrant (principal) | CPT/HCPCS: 76642; 77066; G0279 ==